=== PATIENT | female | born 1955 | race Caucasian/White ===

== ENCOUNTER 2019-12-08 12:14 | Emergency (ER) | payer OTHER, SELFPAY ==
[2019-12-08 12:34] VITALS: BP 127/76; PULSE 51; RESP 18; TEMP 36.2; O2SAT 100
--- NOTE | 2019-12-08 12:51 | ED.EYEPROB ---
HPI - Eye Problem General Chief complaint: Eye Problems Stated complaint: riht eye pain Time Seen by Provider: 12/08/19 12:51 Source: patient and RN notes reviewed Mode of arrival: ambulatory Limitations: no limitations History of Present Illness HPI Narrative: 64 female presents with concern for right eye pain. Reports last night she was packed in the eye by a chicken. She reports she thinks that she can packed her on the lower lid, however she was having eye pain last night this morning. Reports watery drainage. Reports she is not currently wearing her glasses, however has not had any change to vision. Denies purulent drainage. chief complaint: eye pain Related Data Home Medications Medication Instructions Recorded Confirmed alprazolam 0.5 mg PO DAILY 12/08/19 12/08/19 escitalopram oxalate 10 mg PO DAILY 12/08/19 12/08/19 levothyroxine 88 mcg PO DAILY 12/08/19 12/08/19 metoprolol succinate 25 mg PO DAILY 12/08/19 12/08/19 Allergies Allergy/AdvReac Type Severity Reaction Status Date / Time No Known Allergies Allergy Unverified 12/08/19 12:30 Review of Systems Review of Systems: Narrative: CONSTITUTIONAL: Denies malaise, chills, sweats, or fever. EYES: Denies visual changes. Reports right eye pain, redness, watery discharge. ENT: Denies rhinorrhea, congestion, sinus pain, otalgia or sore throat. SKIN: Denies abrasion, laceration All systems reviewed & are unremarkable except as noted in HPI and below PMFSH Comments At time of signature, agree with nursing past medical, surgical, social and family history. There is no relevant family history pertinent to the presenting complaint Exam Narrative: Exam Narrative: GENERAL: Well-appearing, well-nourished, and in no acute distress. HEAD: Normocephalic, atraumatic. EYES: PERRLA and EOMI. No nystagmus. Left eye sclera conjunctive a clear. Right eye sclera injected, corneal abrasion noted upon [place] lamp exam, see note. No foreign body noted. No purulent drainage noted ENT: Mucous membranes moist. NECK: Supple. CHEST: No respiratory distress. Speaks in full sentences. HEART: Regular rate and rhythm. SKIN: Warm, dry, no rash. No laceration, abrasion to the eye or surrounding tissue NEURO: Alert and oriented x3. PSYCH: Normal mood and affect Course Course Emergency Course: Patient is aware of diagnosis, understands and agrees to treatment plan. Anticipatory guidance given. Patient agrees to follow-up as directed and is aware of reasons to seek care at the emergency department. Portions of this record may have been created with voice recognition software Vital Signs Vital signs: Vital Signs Temperature 97.2 F L 12/08/19 12:34 Pulse Rate 51 L 12/08/19 12:34 Respiratory Rate 18 12/08/19 12:34 Blood Pressure 127/76 12/08/19 12:34 Pulse Oximetry 100 12/08/19 12:34 Temperature 97.2 F L 12/08/19 12:34 Pulse Rate 51 L 12/08/19 12:34 Respiratory Rate 18 12/08/19 12:34 Blood Pressure 127/76 12/08/19 12:34 Pulse Oximetry 100 12/08/19 12:34 Reviewed. Critical Care Time Critical Care Time Critical Care Time: No Discharge Plan Discharge Clinical Impression: Corneal abrasion Qualifiers: Encounter type: initial encounter Laterality: right Qualified Code(s): S05.01XA - Injury of conjunctiva and corneal abrasion without foreign body, right eye, initial encounter Patient Disposition: Home, Self-Care Condition: Stable Instructions: Corneal Abrasion (ED) Additional Instructions: Corneal abrasions will heal in 1-2 days. Keep your eye shut and wearing sunglasses or staying in low light to avoid light sensitivity. Do not touch or rub your eye or use a fabric patch ( pirate's patch ) You may take Tylenol or ibuprofen for pain Follow-up with PCP or fire protection engineer if condition is not improving in 2-3days. Prescriptions: New polymyxin B sulf-trimethoprim [Polytrim] 10,000 unit- 1 mg/mL drops 1 drp RIGHTALBINE Q4
== END 2019-12-08 13:01 | disposition home or self-care (01) ==
PROVIDERS: Emergency Provider Nurse Practitioner
DX: S05.01XA Injury of conjunctiva and corneal abrasion without foreign body, right eye, initial encounter (principal); W61.33XA Pecked by chicken, initial encounter; E03.9 Hypothyroidism, unspecified; F41.9 Anxiety disorder, unspecified; F32.9 Major depressive disorder, single episode, unspecified
CPT/HCPCS: 99213; A9270; G0463

== ENCOUNTER 2020-02-08 15:20 | Emergency (ER) | payer MEDICARE, MEDICAID, SELFPAY ==
--- NOTE | 2020-02-08 15:28 | ED.DENTAL ---
HPI - Dental/Oral General Chief complaint: Dental/Oral Stated complaint: abscess in mouth Time Seen by Provider: 02/08/20 15:34 Source: patient and RN notes reviewed Mode of arrival: ambulatory Limitations: no limitations History of Present Illness HPI Narrative: 65-year-old female presents concern for lower dental pain. Reports she seen a dentist, but has not been able to afford to go back for treatment. Reports pain, swelling in the gumline. Reports she has been taking ibuprofen and Tylenol with no relief. She denies difficulty swallowing, fever. MD Complaint: tooth pain Related Data Home Medications Medication Instructions Recorded Confirmed alprazolam 0.5 mg PO DAILY 12/08/19 02/08/20 escitalopram oxalate 10 mg PO DAILY 12/08/19 02/08/20 levothyroxine 88 mcg PO DAILY 12/08/19 02/08/20 metoprolol succinate 25 mg PO DAILY 12/08/19 02/08/20 Allergies Allergy/AdvReac Type Severity Reaction Status Date / Time No Known Allergies Allergy Verified 02/08/20 15:37 Review of Systems Review of Systems: Narrative: CONSTITUTIONAL: Denies malaise, chills, sweats, or fever. EYES: Denies visual changes, redness, or discharge. ENT: Denies rhinorrhea, congestion, sinus pain, otalgia or sore throat. Reports lower dental pain CARDIOVASCULAR: Denies chest pain, palpitations, or edema. RESPIRATORY: Denies cough or dyspnea. GASTROINTESTINAL: Denies abdominal pain, nausea, vomiting SKIN: Reports lower facial swelling MUSCULOSKELETAL: Denies myalgia. NEUROLOGIC: Denies numbness, weakness, or headache. All systems reviewed & are unremarkable except as noted in HPI and below PMFSH Comments At time of signature, agree with nursing past medical, surgical, social and family history. There is no relevant family history pertinent to the presenting complaint Exam Narrative: Exam Narrative: GENERAL: Well-appearing, well-nourished, and in no acute distress. HEAD: Normocephalic, atraumatic. EYES: PERRLA, conjunctivae clear ENT: Nares clear. Mucous membranes moist. Oropharynx without erythema or lesions. Tonsils not enlarged and without exudate. Missing teeth, caries tooth #23 surrounding erythema, no periapical abscess NECK: Supple. No lymphadenopathy CHEST: No respiratory distress. Speaks in full sentences. HEART: Regular rate and rhythm. SKIN: Warm, dry, no rash. NEURO: Alert and oriented x3. PSYCH: Normal mood and affect Course Course Emergency Course: Patient is aware of diagnosis, understands and agrees to treatment plan. Anticipatory guidance given. Patient agrees to follow-up as directed and is aware of reasons to seek care at the emergency department. Portions of this record may have been created with voice recognition software Vital Signs Vital signs: Vital Signs Temperature 98.0 F 02/08/20 15:32 Pulse Rate 54 L 02/08/20 15:32 Respiratory Rate 16 02/08/20 15:32 Blood Pressure 134/72 02/08/20 15:32 Pulse Oximetry 99 02/08/20 15:32 Temperature 98.0 F 02/08/20 15:37 Pulse Rate 54 L 02/08/20 15:37 Respiratory Rate 16 02/08/20 15:37 Blood Pressure 134/72 02/08/20 15:37 Pulse Oximetry 99 02/08/20 15:37 Reviewed. MDM - Dental/Oral MDM Narrative Medical decision making narrative: Patients pain and complaint coupled with physical findings are consistant with dentalgia. There are no focal signs of space occupying lesions that are compromising to the airway; no dysphagia, odynophagia, dysphonia, or dyspnea. No uvular deviation or soft palate edema. Patient is non-toxic appearing. The floor of the mouth is soft with no signs of Imer's Angina; no induration below mandible, no neck pain. Patient is without trismus or drooling and able to swallow secretions. Patient is felt appropriate for discharge home with dental follow up. Critical Care Time Critical Care Time Critical Care Time: No Discharge Plan Discharge Clinical Impression: Dental abscess Patient Disposition: Home, Self-Care
[2020-02-08 15:32] VITALS: BP 134/72; PULSE 54; RESP 16; TEMP 36.7; O2SAT 99
[2020-02-08 15:37] VITALS: BP 134/72; PULSE 54; RESP 16; TEMP 36.7; O2SAT 99
== END 2020-02-08 15:46 | disposition home or self-care (01) ==
PROVIDERS: Emergency Provider Nurse Practitioner
DX: K04.7 Periapical abscess without sinus (principal); E03.9 Hypothyroidism, unspecified; F41.9 Anxiety disorder, unspecified; F32.9 Major depressive disorder, single episode, unspecified
CPT/HCPCS: 99213; G0463

== ENCOUNTER 2020-10-28 19:49 | Emergency (ER) | payer MEDICARE, MEDICAID, SELFPAY ==
--- NOTE | 2020-10-28 20:21 | PC.NURSE ---
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 RN unable to give a time frame so pt ambulated to exit.
== END 2020-10-28 20:21 | disposition left against medical advice (07) ==
LOC: ANHED 20:36
DX: Z53.21 Procedure and treatment not carried out due to patient leaving prior to being seen by health care provider (principal)
CPT/HCPCS: 99199

== ENCOUNTER 2020-10-28 21:06 | Emergency (ER) | payer MEDICARE, MEDICAID, SELFPAY ==
[2020-10-28 21:25] VITALS: BP 126/72; PULSE 70; RESP 18; TEMP 36.8; O2SAT 98
--- NOTE | 2020-10-28 23:56 | ED.ANIMALBIT ---
HPI - Animal Bite General Chief Complaint: Animal Bite Stated Complaint: cat bite Time Seen by Provider: 10/28/20 23:50 Source: patient Mode of arrival: ambulatory Limitations: no limitations History of Present Illness HPI narrative: 65-year-old here with complaints of cat bite to her left wrist and hand happened few hours ago at home. She states that she has bleeding profusely at home. complaint: animal bite Onset (ago): hour(s) (3) Animal: cat Description of animal: household pet Mechanism: bite Location - Extremities: Left: hand Pain description: sharp Context: unprovoked Associated symptoms: none Related Data Home Medications Medication Instructions Recorded Confirmed alprazolam 0.5 mg PO DAILY 12/08/19 02/08/20 escitalopram oxalate 10 mg PO DAILY 12/08/19 02/08/20 levothyroxine 88 mcg PO DAILY 12/08/19 02/08/20 metoprolol succinate 25 mg PO DAILY 12/08/19 02/08/20 montelukast mg 10/28/20 Allergies Allergy/AdvReac Type Severity Reaction Status Date / Time No Known Allergies Allergy Verified 10/28/20 21:33 Review of Systems Review of Systems: All systems reviewed & are unremarkable except as noted in HPI and below Constitutional: Constitutional: Reports no additional constitutional complaints Eyes: Eyes: Reports no additional eye complaints ENT: Reports system reviewed and no additional complaints, except as documented Respiratory: Respiratory: Reports no additional respiratory complaints Exam Narrative: GENERAL: Well-appearing, well-nourished, and in no acute distress. HEAD: Normocephalic, atraumatic. EYES: PERRLA and EOMI.. NECK: Supple. CHEST: Clear to auscultation. No respiratory distress. HEART: Regular rate and rhythm. No murmur heard. Normal peripheral pulses. EXTREMITIES: Normal range of motion. No edema. Acute chirinos noted on the left wrist and hand with very minimal bleeding SKIN: Warm, dry, no rash. NEURO: No focal deficits. Alert and oriented x3. PSYCH: Normal mood and affect. Course Vital Signs Vital signs: Vital Signs Temperature 36.8 C 10/28/20 21:25 Pulse Rate 70 10/28/20 21:25 Respiratory Rate 18 10/28/20 21:25 Blood Pressure 126/72 10/28/20 21:25 Pulse Oximetry 98 10/28/20 21:25 Temperature 36.8 C 10/28/20 21:25 Pulse Rate 70 10/28/20 21:25 Respiratory Rate 18 10/28/20 21:25 Blood Pressure 126/72 10/28/20 21:25 Pulse Oximetry 98 10/28/20 21:25 Discharge Plan Discharge Clinical Impression: Cat bite Patient Disposition: Home, Self-Care Condition: Stable Instructions: Antibiotic Form Additional Instructions: Take antibiotic as prescribed, keep the wound dry and clean , watch for infection. Prescriptions: New amoxicillin-pot clavulanate [Augmentin] 875-125 mg tablet 1 tablet PO Q12H Qty: 20 RF: 0 No Action levothyroxine 88 mcg tablet 88 mcg PO DAILY RF: 0 alprazolam 0.5 mg tablet 0.5 mg PO DAILY RF: 0 metoprolol succinate 25 mg tablet extended release 24 hr 25 mg PO DAILY RF: 0 escitalopram oxalate 10 mg tablet 10 mg PO DAILY RF: 0 montelukast 10 mg tablet RF: 0 Follow-up/Referrals: PHYSICIAN NOT ON STAFF,NONSTAFF [Primary Care Provider] - Dorian Palomo MD [Physician] - Time of Disposition: 00:00
[2020-10-29] MEDS: IBUPROFEN 400 MG TABLET PO (00:03)
[2020-10-29 00:39] VITALS: BP 126/72; PULSE 60; RESP 18; TEMP 36.9; O2SAT 98
== END 2020-10-29 00:15 | disposition home or self-care (01) ==
PROVIDERS: Emergency Provider Family Medicine
DX: S61.552A Open bite of left wrist, initial encounter (principal); W55.01XA Bitten by cat, initial encounter
CPT/HCPCS: 99283; A9270

== ENCOUNTER 2020-11-22 15:18 | Emergency (ER) | payer MEDICARE, MEDICAID, SELFPAY ==
[2020-11-22 15:29] VITALS: BP 124/51; PULSE 51; RESP 18; TEMP 36.3; O2SAT 97
--- NOTE | 2020-11-22 17:12 | ED.SKABFB ---
HPI - Skin/Abscess/Foreign Bdy General Chief complaint: Skin/Abscess/Foreign Body Stated complaint: Thrush Time Seen by Provider: 11/22/20 17:12 Source: patient, RN notes reviewed and old records reviewed Mode of arrival: ambulatory Limitations: no limitations History of Present Illness HPI narrative: 65 year old female who presents to [facility] with complaints of having blisters to tongue, is burning and painful, thinks she has thrush. Patient states that she just completed antibiotic of sulfa and tongue pain and burning started after she finished medication. Patient denies any sore throat, fevers, chills or sweats or any other ill symptoms. She denies any difficulty with her swallowing or any shortness of breath or any other rash or lesions. Some redness noted to tongue with some raised red areas, no white plaques noted. MD complaint: other Related Data Home Medications Medication Instructions Recorded Confirmed alprazolam 0.5 mg PO DAILY 12/08/19 02/08/20 escitalopram oxalate 10 mg PO DAILY 12/08/19 02/08/20 levothyroxine 88 mcg PO DAILY 12/08/19 02/08/20 metoprolol succinate 25 mg PO DAILY 12/08/19 02/08/20 montelukast mg 10/28/20 Allergies Allergy/AdvReac Type Severity Reaction Status Date / Time No Known Allergies Allergy Verified 10/28/20 21:33 Course Vital Signs Vital signs: Vital Signs Temperature 36.3 C L 11/22/20 15:29 Pulse Rate 51 L 11/22/20 15:29 Respiratory Rate 18 11/22/20 15:29 Blood Pressure 124/51 L 11/22/20 15:29 Pulse Oximetry 97 11/22/20 15:29 Temperature 36.3 C L 11/22/20 15:29 Pulse Rate 51 L 11/22/20 15:29 Respiratory Rate 18 11/22/20 15:29 Blood Pressure 124/51 L 11/22/20 15:29 Pulse Oximetry 97 11/22/20 15:29 Discharge Plan Discharge Clinical Impression: Stomatitis Patient Disposition: Home, Self-Care Condition: Stable Instructions: GERD (Gastroesophageal Reflux Disease) (ED), Oral Mucositis (ED) Additional Instructions: Maintain small frequent meals Avoid any spicy foods Avoid fried, greasy, fatty, fried foods Avoid caffeine, nicotine, and alcohol Return to your regular diet in the next 3-4 days Medication as directed for stomatitis Pepcid 40 mg 1 tab daily as prescribed for stomach Follow-up with her PCP if continued problems or uncontrolled pain If your symptoms persist, change or worsen significantly before you can contact your personal physician then please, without delay, go to the emergency department for further evaluation. Follow-up with PCP in 7-10 days or sooner if needed Prescriptions: New Magic Mouthwash (Dr. Paige) 120 mL suspension 10 ml PO TID PRN (Reason: stomatitis) Qty: 120 RF: 0 famotidine [Pepcid] 40 mg tablet 40 mg PO DAILY Qty: 30 RF: 0 No Action levothyroxine 88 mcg tablet 88 mcg PO DAILY RF: 0 alprazolam 0.5 mg tablet 0.5 mg PO DAILY RF: 0 metoprolol succinate 25 mg tablet extended release 24 hr 25 mg PO DAILY RF: 0 escitalopram oxalate 10 mg tablet 10 mg PO DAILY RF: 0 montelukast 10 mg tablet RF: 0 Follow-up/Referrals: PHYSICIAN NOT ON STAFF,NONSTAFF [Primary Care Provider] - Time of Disposition: 17:34 Quality Beto Coma Scale Eyes: Open Verbal: Oriented and Alert Motor: Follows Commands Ephraim Coma Total Score: 15
--- NOTE | 2020-11-22 17:21 | ED.SKABFB ---
HPI - Skin/Abscess/Foreign Bdy General Chief complaint: Skin/Abscess/Foreign Body Stated complaint: Thrush Time Seen by Provider: 11/22/20 17:12 Source: patient, RN notes reviewed and old records reviewed Mode of arrival: ambulatory Limitations: no limitations History of Present Illness HPI narrative: 65 year old female who presents to [facility] care with complaints of having blisters to tongue, is burning and painful, thinks she has thrush. Patient states that she just completed antibiotic of sulfa for a cat bite and tongue pain and burning started after she finished medication. Patient denies any sore throat, fevers, chills or sweats or any other ill symptoms. She denies any difficulty with her swallowing or any shortness of breath or any other rash or lesions. Some redness noted to tongue with some raised red areas, no white plaques noted. MD complaint: other (redness, blisters and burning of tongue) Related Data Home Medications Medication Instructions Recorded Confirmed alprazolam 0.5 mg PO DAILY 12/08/19 02/08/20 escitalopram oxalate 10 mg PO DAILY 12/08/19 02/08/20 levothyroxine 88 mcg PO DAILY 12/08/19 02/08/20 metoprolol succinate 25 mg PO DAILY 12/08/19 02/08/20 montelukast mg 10/28/20 Allergies Allergy/AdvReac Type Severity Reaction Status Date / Time No Known Allergies Allergy Verified 10/28/20 21:33 Review of Systems Review of Systems: CONSTITUTIONAL: Denies fever, chills, or sweats. EYES: Denies visual changes, redness, or discharge. ENT: Denies rhinorrhea, congestion, sore throat, or otalgia. CARDIOVASCULAR: Denies chest pain, palpitations, or edema, blisters to tongue with redness and burning pain RESPIRATORY: Denies cough or acute dyspnea. GASTROINTESTINAL: Denies abdominal pain, nausea, vomiting, or diarrhea, appetite poor has lost weight GENITOURINARY: Denies dysuria or hematuria. SKIN: Denies rash or itching. MUSCULOSKELETAL: Denies back pain, joint pain, or myalgia. NEUROLOGIC: Denies headache, numbness, or weakness. PSYCHIATRIC:Positive history of anxiety or depression. All systems reviewed & are unremarkable except as noted in HPI and below PMFSH Past Medical History Medical History (Updated 11/27/20 @ 14:03 by sAhely Olivares NP) Anxiety and depression COPD (chronic obstructive pulmonary disease) GERD (gastroesophageal reflux disease) Hypothyroidism Surgical History Surgical History (Updated 11/27/20 @ 14:05 by Ashely Olivares NP) No history of previous surgery Family History Family History (Updated 11/27/20 @ 14:07 by Ashely Olivares NP) Other No significant family history Social History Social History (Updated 11/27/20 @ 14:06 by Ashely Olivares NP) Smoking packs per day: 1 Smoking cigarettes per day: 20.0 Smoking status: Current every day smoker Tobacco type: cigarettes Alcohol intake: unknown Substance use type: does not use Gender identity (if verbalized by the patient): Female Comments At time of signature, agree with nursing past medical, surgical, social and family history. There is no relevant family history pertinent to the presenting complaint Exam Narrative: GENERAL: chronic ill appearing, frail and in no acute distress. HEAD: Normocephalic, atraumatic. EYES: PERRLA and EOMI. ENT: Nares clear, no rhinorrhea or epistaxis. Mucous membranes moist.TM's normal with good light reflex, throat pink with no lesions, no tonsil enlargement, tongue red to back with some raised red area, left side of tongue red with stated burning sensation. No Imer angina noted NECK: Supple. no lymphadenopathy CHEST: Clear decreased to auscultation. No respiratory distress.SAO2 97% on room air, denies any acute cough or dyspnea does have history of COPD HEART: Regular rate and rhythm. No murmur heard. Normal peripheral pulses. ABDOMEN: Soft, nontender, nondistended, normal active bowel sounds. EXTREMITIES: Normal range of motion. No edema. SKIN: Warm, dry, no ra
== END 2020-11-22 17:40 | disposition home or self-care (01) ==
PROVIDERS: Emergency Provider Registered Nurse
DX: K12.1 Other forms of stomatitis (principal); F17.210 Nicotine dependence, cigarettes, uncomplicated; J44.9 Chronic obstructive pulmonary disease, unspecified; K21.9 Gastro-esophageal reflux disease without esophagitis; E03.9 Hypothyroidism, unspecified
CPT/HCPCS: 99213; G0463

== ENCOUNTER 2020-12-19 12:22 | Emergency (ER) | payer MEDICARE, MEDICAID, SELFPAY ==
--- NOTE | ~2020-12-19 | XR_ITS ---
XR tibia fibula LT 2V 12/19/2020 13:28 INDICATION: Left leg pain after trauma PROCEDURE: 2 views left tibia/fibula COMPARISON: No prior studies for comparison. FINDINGS: Fracture, dislocation or subluxation is not identified. The soft tissues appear within norm al limits. No foreign bodies are identified. IMPRESSION: 1: NO ACUTE BONE OR JOINT ABNORMALITY IDENTIFIED. Reviewed, dictated and finalized at location A.
[2020-12-19 12:34] VITALS: BP 102/49; PULSE 78; RESP 20; TEMP 37.1; O2SAT 100
--- NOTE | 2020-12-19 13:08 | ED.LOWEXIN ---
HPI - Extremity Injury (Lower) General Chief Complaint: Extremity Injury, Lower Stated Complaint: Left Leg Pain Time Seen by Provider: 12/19/20 13:08 Source: patient Mode of arrival: ambulatory Limitations: no limitations History of Present Illness HPI Narrative: Brenda Orozco is a 65 yo female with a PMH of hypertension tobacco abuse, depression, COPD, who comes with a bite to the lower left leg by an aggressive rooster. She was checking on her neighbors' chickens and the rooster attacked her and bit her in the left lower anterior leg. Small puncture wound with swelling and redness of the foot and lower ankle with pain. Hard for her to walk. Related Data Home Medications Medication Instructions Recorded Confirmed alprazolam 0.5 mg PO DAILY 12/08/19 02/08/20 escitalopram oxalate 10 mg PO DAILY 12/08/19 02/08/20 levothyroxine 88 mcg PO DAILY 12/08/19 02/08/20 metoprolol succinate 25 mg PO DAILY 12/08/19 02/08/20 montelukast mg 10/28/20 Allergies Allergy/AdvReac Type Severity Reaction Status Date / Time Sulfa (Sulfonamide Allergy Rash Verified 12/19/20 12:47 Antibiotics) Review of Systems Review of Systems: CONSTITUTIONAL: Denies fever, chills, sweats. EYES: Denies visual changes, redness, discharge. ENT: Denies rhinorrhea, congestion, sore throat, otalgia. CARDIOVASCULAR: Denies chest pain, palpitations, edema. RESPIRATORY: Denies dyspnea, wheezing, cough GASTROINTESTINAL: Denies abdominal pain, nausea, vomiting, diarrhea. GENITOURINARY: Denies dysuria, hematuria, abnormal discharge SKIN: Denies rash or itching. NEUROLOGIC: Denies numbness, or focal weakness. PSYCHIATRIC: Denies anxiety or depression. Left lower leg injury [facility] Past Medical History Medical History Anxiety and depression COPD (chronic obstructive pulmonary disease) GERD (gastroesophageal reflux disease) Hypothyroidism Surgical History Surgical History No history of previous surgery Family History Family History Other No significant family history Social History Social History Smoking packs per day: 1 Smoking cigarettes per day: 20.0 Smoking status: Current every day smoker Tobacco type: cigarettes Alcohol intake: unknown Substance use type: does not use Gender identity (if verbalized by the patient): Female Comments At time of signature, I agree with nursing past medical, surgical, social and family history. There is no relevant family history pertinent to the presenting complaint. Exam Narrative: GENERAL: This is a well-nourished, well-developed patient, in mild distress. HEAD: normocephalic, atraumatic. EYES: Sclera clear/white. Vision is grossly intact. EARS: External ears normal, . Hearing grossly intact. NOSE: External nose normal without nasal discharge, nares without redness, no rhinorrhea. THROAT: Mucous membranes moist, NECK: Neck supple, non-tender CARDIOVASCULAR: Regular rate and rhythm without murmurs, gallops, or rubs. RESPIRATORY: Clear to auscultation. Breath sounds equal bilaterally. No wheezes, rales, or rhonchi. GASTROINTESTINAL: Abdomen soft, SKIN: warm, intact with no suspicious lesions or rash, good texture and turgor. NEURO: awake, alert, and oriented to person, place and time. There were no obvious focal neurologic abnormalities. Steady gait EXTREMITIES: Normal range of motion. Left lower leg pain with some swelling she has a scab at the lower third of the anterior tibia states that it is painful to try and put pressure on it and has mild swelling on the dorsum of foot and ankle BACK: Nontender without deformity Course Course Emergency Course: Patient is bright by rooster to the left lower extremity on the anterior tibia X-ray of leg taken-no acute bone or joint a
--- NOTE | 2020-12-19 13:11 | PC.NURSE ---
[facility] WAS CONTACTED. THEY RETURNED OUR CALL SAYING THEY CONTACTED [facility]. HER SUGGESTION IS TO UPDATE TETANUS IF GREATER THAN 5 YEARS, TREAT THE SYMPTOMS.
[2020-12-19] MEDS: TETANUS,DIPHTHERIA,AC PERTUSSIS ADULT (0.5 ML) BOOSTRIX IM (13:47)
== END 2020-12-19 14:00 | disposition home or self-care (01) ==
PROVIDERS: Emergency Provider Nurse Practitioner; PCP Internal Medicine
DX: S91.032A Puncture wound without foreign body, left ankle, initial encounter (principal); W64.XXXA Exposure to other animate mechanical forces, initial encounter; Z23 Encounter for immunization; F17.210 Nicotine dependence, cigarettes, uncomplicated; J44.9 Chronic obstructive pulmonary disease, unspecified; K21.9 Gastro-esophageal reflux disease without esophagitis; E03.9 Hypothyroidism, unspecified; F41.9 Anxiety disorder, unspecified; F32.9 Major depressive disorder, single episode, unspecified
CPT/HCPCS: 73590; 90471; 90715; 99213; G0463